=== PATIENT | male | born 1995 | race African-American/Black ===

== ENCOUNTER 2017-06-30 20:49 | Emergency (ER) | payer SELFPAY ==
[~2017-06-30] VITALS: Ht 190.5 cm; Wt 67.8 kg
[2017-06-30 20:49] VITALS: BP 127/72
[2017-06-30] MEDS ORDERED: ALEV220C2 PO (20:59)
[2017-06-30] MEDS ORDERED: CYCL10TA PO (22:09)
[2017-06-30] MEDS ORDERED: IBUP-1022 PO (22:09)
[2017-06-30] MEDS ORDERED: IBUPROFEN 600 MG TAB PO ONE (22:15)
[2017-06-30] MEDS ORDERED: CYCLOBENZAPRINE 10 MG TAB PO ONE (22:15)
== END 2017-06-30 22:31 | disposition home or self-care (01) ==
LOC: M ED 20:49
DX: M54.42 Lumbago with sciatica, left side (principal); F17.210 Nicotine dependence, cigarettes, uncomplicated

== ENCOUNTER 2017-10-14 13:42 | Emergency (ER) | payer SELFPAY, MEDICAID ==
[2017-10-14] MEDS: AUGMENTIN 875 MG TAB PO (15:49)
[2017-10-14] MEDS: ADACEL/BOOSTRIX VACCINE (DIPHTH/PERTUSS/ACELL/TETANUS)0.5ML SYR (90715) IM (15:50)
== END 2017-10-14 16:12 | disposition home or self-care (01) ==
LOC: M ED 13:42
DX: S61.452A Open bite of left hand, initial encounter (principal); L08.9 Local infection of the skin and subcutaneous tissue, unspecified; W55.01XA Bitten by cat, initial encounter; Y92.099 Unspecified place in other non-institutional residence as the place of occurrence of the external cause; Y93.89 Activity, other specified; F17.200 Nicotine dependence, unspecified, uncomplicated
CPT/HCPCS: 90715

== ENCOUNTER 2017-11-07 07:42 | Emergency (ER) | payer SELFPAY, MEDICAID ==
[2017-11-07] MEDS: ACETAMINOPHEN 325 MG TAB PO (09:26)
== END 2017-11-07 09:40 | disposition home or self-care (01) ==
LOC: M ED 07:42
DX: S97.82XA Crushing injury of left foot, initial encounter (principal); M25.572 Pain in left ankle and joints of left foot; R20.0 Anesthesia of skin; Y04.8XXA Assault by other bodily force, initial encounter; Y92.89 Other specified places as the place of occurrence of the external cause
CPT/HCPCS: 73630

== ENCOUNTER 2019-02-01 09:53 | Emergency (ER) | payer OTHER, SELFPAY ==
[~2019-02-01] VITALS: Ht 190.5 cm; Wt 56.8 kg
[~2019-02-01 09:53] MED LIST: ALEV220C2 PO; AUGM875T28 PO; CYCL10TA PO; IBUP-1022 PO; IBUP80TA PO
[2019-02-01] MEDS ORDERED: ACET160S3 PO (09:59)
--- NOTE | 2019-02-01 11:06 | REP ---
Clinical: Trauma. Crush injury. Technique: AP, lateral, bilateral oblique views right foot . Findings: The osseous structures and joint spaces are intact and normal. There is no evidence for acute fracture or dislocation. Surrounding soft tissues are unremarkable. No subcutaneous emphysema or radiodense foreign body. Impression: No acute fracture or dislocation. Electronically Signed by Kota Medley MD 02/01/2019 10:57 A
[2019-02-01] MEDS ORDERED: IBUPROFEN 800 MG TAB PO ONE (11:15)
[2019-02-01] MEDS ORDERED: ADACEL/BOOSTRIX VACCINE (DIPHTH/PERTUSS/ACELL/TETANUS)0.5ML SYR (90715) IM ONE (11:15)
[2019-02-01 12:38] VITALS: BP 121/70
== END 2019-02-01 12:50 | disposition home or self-care (01) ==
LOC: M ED 09:53
DX: S91.201A Unspecified open wound of right great toe with damage to nail, initial encounter (principal); S90.211A Contusion of right great toe with damage to nail, initial encounter; W23.0XXA Caught, crushed, jammed, or pinched between moving objects, initial encounter; Y92.89 Other specified places as the place of occurrence of the external cause; Y93.9 Activity, unspecified; Y99.0 Civilian activity done for income or pay; Z72.0 Tobacco use

== ENCOUNTER → 2019-11-05 | Outpatient (REF) | payer SELFPAY ==
[~2019-11-05] MED LIST changes: +ACET160S3 PO
[2019-11-05 14:50] LABS: APPEARANCE, URINE MANUAL CLEAR (CLEAR); COLOR, URINE MANUAL ORANGE (YELLOW)
[2019-11-05 14:51] LABS: GLUCOSE, URINE (UA) MANUAL NEGATIVE (NEGATIVE); KETONE, URINE MANUAL NEGATIVE (NEGATIVE); PROTEIN, URINE MANUAL NEGATIVE (NEGATIVE)
[2019-11-05 14:52] LABS: BILIRUBIN, URINE MANUAL 1+ (NEGATIVE); BLOOD URINE MANUAL TRACE (NEGATIVE); LEUKOCYTE ESTERASE, URINE MAN POSITIVE (NEGATIVE); NITRITE, URINE MANUAL POSITIVE (NEGATIVE); UROBILINOGEN, URINE MANUAL 4 MG mg/dl (NORMAL)
[2019-11-05 15:02] LABS: WBC, URINE 40-50 /hpf (0-3)
[2019-11-05 15:04] LABS: BACTERIA, URINE SMALL AMOUNT; SQUAMOUS EPITHELIAL CELL URINE SMALL AMOUNT /hpf (SMALL AMT)
[2019-11-05 16:22] LABS: CHLAMYDIA DNA AMPLIFICATION NEGATIVE (NEGATIVE); GC DNA AMPLIFICATION POSITIVE (NEGATIVE)
== END ==
LOC: M LAB REF 14:42
PROVIDERS: ATTEND Physician Assistant Medical
DX: Z11.3 Encounter for screening for infections with a predominantly sexual mode of transmission (principal)

== ENCOUNTER 2020-02-10 16:10 | Emergency (ER) | payer MEDICAID, SELFPAY ==
[~2020-02-10] VITALS: Ht 188 cm; Wt 70.5 kg
[~2020-02-10 16:10] MED LIST changes: +CYCL-707 PO; -CYCL10TA PO
--- NOTE | 2020-02-10 17:55 | ECGEPIP ---
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
[2020-02-10 18:01] VITALS: BP 135/55
== END 2020-02-10 18:04 | disposition home or self-care (01) ==
LOC: M ED 16:10
DX: F41.9 Anxiety disorder, unspecified (principal); R55 Syncope and collapse; R06.4 Hyperventilation; I45.19 Other right bundle-branch block; F91.3 Oppositional defiant disorder; F90.9 Attention-deficit hyperactivity disorder, unspecified type

== ENCOUNTER → 2022-06-29 | Outpatient (REF) | payer SELFPAY ==
[2022-06-29 15:32] LABS: APPEARANCE, URINE MANUAL CLEAR (CLEAR); COLOR, URINE MANUAL YELLOW (YELLOW)
[2022-06-29 15:33] LABS: BILIRUBIN, URINE MANUAL NEGATIVE (NEGATIVE); BLOOD URINE MANUAL NEGATIVE (NEGATIVE); GLUCOSE, URINE (UA) MANUAL NEGATIVE (NEGATIVE); KETONE, URINE MANUAL NEGATIVE (NEGATIVE); LEUKOCYTE ESTERASE, URINE MAN NEGATIVE (NEGATIVE); NITRITE, URINE MANUAL NEGATIVE (NEGATIVE); PROTEIN, URINE MANUAL NEGATIVE (NEGATIVE); UROBILINOGEN, URINE MANUAL NORMAL (NORMAL)
[2022-06-29 17:03] LABS: GC DNA AMPLIFICATION NEGATIVE (NEGATIVE)
== END ==
LOC: M LAB REF 15:04
PROVIDERS: ATTEND Physician Assistant Medical
DX: Z11.3 Encounter for screening for infections with a predominantly sexual mode of transmission (principal)

== ENCOUNTER → 2024-05-09 | Outpatient (REF) | payer OTHER ==
[2024-05-09 12:56] LABS: Trichomonas vaginalis (AMP) NOT DETECTED (NEGATIVE)
[2024-05-09 13:19] LABS: GC DNA AMPLIFICATION NEGATIVE (NEGATIVE)
== END ==
LOC: M LAB REF 11:20
PROVIDERS: ATTEND Student in an Organized Health Care Education/Training Program
DX: R30.0 Dysuria (principal)